=== PATIENT | male | born 1980 | race Caucasian/White ===

== ENCOUNTER 2019-11-24 17:24 | Inpatient (IN) | payer OTHER ==
[~2019-11-24] VITALS: Ht 188 cm; Wt 87.1 kg
[2019-11-24 18:10] LABS: microscopic required? YES; urine erythrocyte 1+ (NEGATIVE)
[2019-11-24 18:12] LABS: BASOPHIL % 0.7 % (0-2); PLATELET COUNT 326 x10^3mcL (130-400); RED CELL DISTRIBUTION WIDTH 13.4 % (11.5-14.5)
[2019-11-24 18:34] LABS: AMPHETAMINE QUAL UR POSITIVE (See below)
[2019-11-24 18:36] LABS: ALKALINE PHOSPHATASE 98 U/L (46-116); ALT/SGPT 57 U/L (16-63); AST/SGOT 54 U/L (15-37); BILIRUBIN TOTAL 0.2 mg/dL (0.20-1.00); CARBON DIOXIDE 21.2 mmol/L (21-32); CHLORIDE SERUM 102 mmol/L (98-107); CREATININE SERUM 3.7 mg/dL (0.7-1.3); GFR1 20 mL/min; GLUCOSE SERUM 349 mg/dL (74-106); LIPASE 161 IU/L (73-393); MAGNESIUM 2.1 mg/dL (1.8-2.4); POTASSIUM SERUM 5.5 mmol/L (3.5-5.1); SODIUM SERUM 133 mmol/L (136-145); T4(THYROXINE) 4.9 ug/dL (4.7-13.3); TOTAL PROTEIN, SERUM 6.2 g/dL (6.4-8.2)
[2019-11-24 18:51] LABS: ALBUMIN 1.9 g/dL (3.4-5.0); CHOLESTEROL 219 mg/dL (<200); HDL CHOLESTEROL 30 mg/dL (40-60)
[2019-11-24] MEDS ORDERED: BASAGLAR K100 UNIT/1 (20:27)
[2019-11-24] MEDS ORDERED: HUMALOG MI100 UNIT/1 (20:28)
[2019-11-24] MEDS ORDERED: HYDRALAZINE HCL25 MG PO (20:28)
[2019-11-24] MEDS ORDERED: SIMVASTATIN5 M2 PO (20:29)
[2019-11-24] MEDS ORDERED: XANAX1 MG PO (20:29)
[2019-11-24] MEDS ORDERED: NOR10T PO (20:30)
[2019-11-24 22:12] VITALS: BP 155/94
[2019-11-24 22:19] VITALS: Ht 188 cm; Wt 87.1 kg
[2019-11-25 07:25] LABS: BASOPHIL % 0.7 % (0-2); PLATELET COUNT 270 x10^3mcL (130-400); RED CELL DISTRIBUTION WIDTH 13.9 % (11.5-14.5)
[2019-11-25 07:30] VITALS: BP 151/100
[2019-11-25 07:58] LABS: CALCIUM 7.9 mg/dL (8.5-10.1); CARBON DIOXIDE 23.9 mmol/L (21-32); CREATININE SERUM 3.3 mg/dL (0.7-1.3); MAGNESIUM 2.1 mg/dL (1.8-2.4); PHOSPHOROUS 4.3 mg/dL (2.5-4.9); POTASSIUM SERUM 4.2 mmol/L (3.5-5.1)
[2019-11-25 12:42] VITALS: BP 154/108
[2019-11-25 15:48] VITALS: BP 156/102
[2019-11-25 19:15] VITALS: BP 168/104
[2019-11-26 06:19] VITALS: BP 191/127
[2019-11-26 06:58] LABS: BASOPHIL % 1.3 % (0-2); PLATELET COUNT 275 x10^3mcL (130-400); RED CELL DISTRIBUTION WIDTH 13.9 % (11.5-14.5)
[2019-11-26 07:19] LABS: CALCIUM 8.4 mg/dL (8.5-10.1); CARBON DIOXIDE 23.9 mmol/L (21-32); CREATININE SERUM 2.9 mg/dL (0.7-1.3); MAGNESIUM 1.9 mg/dL (1.8-2.4); PHOSPHOROUS 4.8 mg/dL (2.5-4.9); POTASSIUM SERUM 4.9 mmol/L (3.5-5.1)
[2019-11-26 08:30] VITALS: BP 188/123
[2019-11-26 11:41] VITALS: BP 182/105
[2019-11-26 15:38] LABS: CREATININE UR 24.1 mg/dL
[2019-11-26 16:09] LABS: CREATININE SERUM 2.9 mg/dL (0.7-1.3)
[2019-11-26 16:50] VITALS: BP 146/75
[2019-11-26 19:20] VITALS: BP 173/129
[2019-11-27 06:37] VITALS: BP 158/99
[2019-11-27 09:00] LABS: BASOPHIL % 0.8 % (0-2); PLATELET COUNT 280 x10^3mcL (130-400); RED CELL DISTRIBUTION WIDTH 13.2 % (11.5-14.5)
[2019-11-27 09:05] VITALS: BP 180/102
[2019-11-27 09:09] LABS: CALCIUM 8.7 mg/dL (8.5-10.1); CARBON DIOXIDE 21.1 mmol/L (21-32); CREATININE SERUM 2.9 mg/dL (0.7-1.3); POTASSIUM SERUM 4.4 mmol/L (3.5-5.1)
[2019-11-27 16:42] VITALS: BP 199/134
[2019-11-27 18:21] VITALS: BP 193/120
[2019-11-27 21:53] VITALS: BP 166/105
[2019-11-28 06:32] VITALS: BP 135/87
[2019-11-28 06:37] LABS: BASOPHIL % 0.5 % (0-2); PLATELET COUNT 325 x10^3mcL (130-400)
[2019-11-28 06:56] LABS: CALCIUM 8.9 mg/dL (8.5-10.1); CARBON DIOXIDE 21.4 mmol/L (21-32); CREATININE SERUM 2.9 mg/dL (0.7-1.3); POTASSIUM SERUM 4.2 mmol/L (3.5-5.1)
[2019-11-28 07:25] VITALS: BP 159/100
[2019-11-28 12:40] VITALS: BP 135/90
[2019-11-28 16:44] VITALS: BP 144/87
[2019-11-28 21:24] VITALS: BP 161/95
[2019-11-29 05:34] VITALS: BP 145/90
[2019-11-29] MEDS ORDERED: XANAX1 MG PO (08:09)
[2019-11-29] MEDS ORDERED: ADA90 PO (08:09)
[2019-11-29] MEDS ORDERED: LANTI SQ (08:10)
[2019-11-29] MEDS ORDERED: HYDRALAZINE HCL50 MG PO (08:14)
[2019-11-29 08:16] VITALS: BP 169/102
[2019-11-29 11:50] VITALS: BP 154/99
[2019-11-29 13:09] VITALS: BP 154/99
[2019-11-29 15:57] VITALS: BP 145/74
== END 2019-11-29 14:36 | disposition home or self-care (01) | DRG 420 ==
LOC: ED 17:24 → DU 20:03 → MU 11-28 08:58
PROVIDERS: Emergency Medicine; Internal Medicine; ADMIT Internal Medicine
DX: E10.65 Type 1 diabetes mellitus with hyperglycemia (principal); N17.0 Acute kidney failure with tubular necrosis; F31.9 Bipolar disorder, unspecified; E87.5 Hyperkalemia; F41.9 Anxiety disorder, unspecified; F12.20 Cannabis dependence, uncomplicated; E78.5 Hyperlipidemia, unspecified; E83.51 Hypocalcemia; F20.9 Schizophrenia, unspecified; F17.210 Nicotine dependence, cigarettes, uncomplicated; E10.21 Type 1 diabetes mellitus with diabetic nephropathy; I16.0 Hypertensive urgency; I12.9 Hypertensive chronic kidney disease with stage 1 through stage 4 chronic kidney disease, or unspecified chronic kidney disease; E10.51 Type 1 diabetes mellitus with diabetic peripheral angiopathy without gangrene; N18.4 Chronic kidney disease, stage 4 (severe); E10.22 Type 1 diabetes mellitus with diabetic chronic kidney disease; Z88.5 Allergy status to narcotic agent; Z89.431 Acquired absence of right foot; Z79.4 Long term (current) use of insulin; Z79.899 Other long term (current) drug therapy
CPT/HCPCS: 36600; 82962; 83880; 99406; G0378; G0480; J0360; J1815; J1885; J2270; J3490; J7030; Q0092